=== PATIENT | female | born 1950 | race Caucasian/White ===

== ENCOUNTER 2016-08-12 09:56 | Outpatient (CLI) | payer MEDICARE, OTHER ==
[~2016-08-12] VITALS: Ht 158.8 cm; Wt 31.8 kg
[2016-08-12] VITALS (11 sets, daily range): BP systolic 125–205; BP diastolic 63–89
[2016-08-12] MEDS ORDERED: BUDE10.2 IH (10:20)
[2016-08-12] MEDS ORDERED: FISH1CAP PO (10:20)
[2016-08-12] MEDS ORDERED: CLON1TAB3 PO (10:20)
[2016-08-12] MEDS ORDERED: ATOR10TA60 PO (10:20)
[2016-08-12] MEDS ORDERED: HYDR-2762 PO (10:20)
[2016-08-12] MEDS ORDERED: LEVO250T7 PO (10:20)
[2016-08-12] MEDS ORDERED: SENN-6 PO (10:20)
[2016-08-12] MEDS ORDERED: ASPI-630 PO (10:20)
[2016-08-12] MEDS ORDERED: LISI40TA PO (10:20)
[2016-08-12] MEDS ORDERED: OMEG1CAP38 PO (10:20)
[2016-08-12] MEDS ORDERED: CHOL2000 PO (10:20)
[2016-08-12 10:26] LABS: HEMATOCRIT 46.2 % (36.0-47.0); HEMOGLOBIN 15.7 g/dL (12.0-15.5); RED BLOOD COUNT 5.26 x10^6/uL (3.50-5.40); RED CELL DISTRIBUTION WIDTH 13.5 % (11.5-14.5)
[2016-08-12 10:27] LABS: CALCIUM 9.1 mg/dL (8.5-10.1); CREATININE 0.5 mg/dL (0.6-1.0); GFR 122.7; POTASSIUM 4.3 mmol/L (3.5-5.1)
[2016-08-12 10:36] LABS: INR 1.1 (0.8-1.1); PROTHROMBIN TIME PATIENT 13.3 SEC (11.7-14.0)
[2016-08-12] MEDS ORDERED: HEPARIN for ARTERIAL LINE 1,500 ML ONE (11:42)
[2016-08-12] MEDS ORDERED: IODIXANOL 320 MG/ML 100 ML VIAL. ONE (11:42)
[2016-08-12] MEDS ORDERED: LIDOCAINE 2% 20 ML VIAL. ONE (11:42)
[2016-08-12] MEDS ORDERED: MIDAZOLAM HCL/PF 2 MG/2 ML VIAL. ONE (11:50)
[2016-08-12] MEDS ORDERED: fentaNYL PF VIAL 100 MCG/2 ML VIAL ONE (11:51)
[2016-08-12] MEDS ORDERED: HEPARIN for IV BOLUS 10,000 UNIT/10 ML VIAL. ONE (11:51)
--- NOTE | 2016-08-12 11:53 | PDOC ---
MODERATE SEDATION ASSESSMENT RISKS/ALTERNATIVES Risks/Alternatives Risks and alternatives of this type of sedation and procedure discussed with: RISK/ALTERNATIVES: Patient H & P ON CHART H & P H & P on chart and reviewed for co-morbid conditions and appropriate labs. H&P ON CHART: Yes STATUS PREG STATUS ASSESSED: N/A MEDS/ALLERGIES REVIEWED Meds/Allergies Reviewed Medications and Allergies including time and route of recently administered narcotics and sedatives. MEDS/ALLERGIES REVIEWED: Yes ASA RATING ASA RATING: III AIRWAY ASSESSMENT Airway Assessment Airway patency, oral function limitations, presence of caps, crowns, dentures, partials, and ability to extend neck assessed. AIRWAY ASSESSMENT: Yes MALLAMPATI SCORE MALLAMPATI SCORE: II, III PRE-SEDATION ASSESSMENT PRE-SEDATION ASSESSMENT: Yes RADHA FRNAK MD Aug 12, 2016 11:53
[2016-08-12] MEDS ORDERED: fentaNYL PF VIAL 100 MCG/2 ML VIAL IV ONE (12:15)
[2016-08-12] MEDS ORDERED: LIDOCAINE 2% 20 ML VIAL. IJ ONE (12:15)
[2016-08-12] MEDS ORDERED: IODIXANOL 320 MG/ML 100 ML VIAL. IART ONE (12:15)
[2016-08-12] MEDS ORDERED: MIDAZOLAM HCL/PF 2 MG/2 ML VIAL. IV ONE (12:15)
[2016-08-12] MEDS ORDERED: CONTRAST GIVEN MC PRN (12:30)
--- NOTE | 2016-08-13 17:39 | CARD ---
APPROVED REPORT Procedure(s) performed: ABD AORTAGRAM W/ BILATERAL FEMORAL RUNOFF SEDATION - 74 MINUTES HISTORY : previous cardiac transplant. INDICATION The indication(s) include : Pham category 3 claudication with significant lifestyle limiting sy mptoms.. CASE TECHNIQUE During this case, Fluoroscopy and low osmolar contrast were used for imaging. PROCEDURE NARRATIVE After appropriate informed consent the patient was brought to the catheterization laboratory in the [facility] [place] groin was prepped and draped in usual sterile fashion. Under fluoroscopic guidance with 2% lidocaine local anesthesia a 5 F introducer sheath was placed in the left common femoral artery. Next, a pigtail catheter was advanced to the mid abdominal aorta and digital subtraction angiography images were performed of the abdominal aorta and iliac vessels in mul tiple projections. Next a 0.014 inch angled Glidewire was used to traverse the right external and com mon iliac artery disease and a angled glide catheter was ultimately placed in the right common femora l artery. Selective angiography was then performed of the right lower extremity and left lower extrem ity. At case completion the left groin sheath was removed and hemostasis was achieved with manual com pression. Findings: Abdominal aorta: Approximately 30% stenosis in the infrarenal segment with mild to moderate dilation above the bifurcation. Patent renal arteries bilaterally. RCIA: Heavily calcified vessel with long diffuse 40% stenosis. RIIA: Subtotally occluded at its origin. REIA: Heavily calcified ostial eccentric 90% stenosis with an 80 mmHg gradient of pressure drop acros s the lesion. RCFA: Mild disease with approximately 30% stenosis RSFA: Ostially occluded with reconstitution at the abductor canal via profunda collaterals. RPROF: Patent with robust collaterals in the thigh to the SFA segments. RPOP: Widely patent without any significant disease *Below the knee the proximal to mid anterior tibial artery appears to be open. The posterior tibial a rtery is occluded. There is single-vessel runoff via the peroneal system. The plantar vessels are not well visualized. LCIA: Heavily calcified and ectatic with long 70% stenosis. LIIA: Moderate to severe diffuse disease. TREVON: Heavily calcified with a long 50-60% stenosis. LCFA: Heavily calcified eccentric 80% stenosis LSFA: Ostially occluded with distal reconsitution near the adductor canal. LPOP: No significant disease. *Below the knee there is 2 vessel runoff via the peroneal and posterior tibial vessels. Again the refugio ntar vessels were not well visualized. Conclusion 1. Bilateral [place] category 3 claudication with lifestyle limiting symptoms 2. 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 3. 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 5. One-vessel runoff to the right lower extremity and 2 vessel runoff to the left lower extremity. Recommendations Aggressive medical therapy and referral to vascular surgery for consideration of bypass. If she is fe lt to be a poor candidate due to her frail state then we will consider a percutaneous approach.
== END 2016-08-12 16:45 | disposition home or self-care (01) ==
LOC: CCL 09:56
PROVIDERS: ATTEND Internal Medicine Cardiovascular Disease
DX: I70.293 Other atherosclerosis of native arteries of extremities, bilateral legs (principal); E78.00 Pure hypercholesterolemia, unspecified; I10 Essential (primary) hypertension; J44.9 Chronic obstructive pulmonary disease, unspecified; F32.9 Major depressive disorder, single episode, unspecified; Z90.710 Acquired absence of both cervix and uterus; Z79.01 Long term (current) use of anticoagulants
CPT/HCPCS: 36246; 36415; 75630; 80048; 85027; 85610; 85730; C1769; C1892; J2250; J3010; Q9967